=== PATIENT | male | born 1985 | race Caucasian/White ===

== ENCOUNTER 2024-09-08 02:26 | Emergency (ER) | payer MEDICAID ==
[~2024-09-08] VITALS: Ht 160 cm; Wt 72.6 kg
[2024-09-08] MEDS ORDERED: diphenhydrAMINE HCL 50 MG/ML VIAL ONE (03:50)
[2024-09-08] MEDS ORDERED: methylPREDNISolone SOD SUCC 125 MG/2ML VIAL ONE (03:50)
[2024-09-08] MEDS: diphenhydrAMINE HCL 50 MG/ML VIAL IV ONE (03:58)
[2024-09-08] MEDS: methylPREDNISolone SOD SUCC 125 MG/2ML VIAL IV ONE (03:59)
[2024-09-08 04:02] LABS: BASOPHILS % (AUTO) 0.2 % (0.0-2.0); EOSINOPHILS % (AUTO) 0.3 % (0.0-6.0); HEMATOCRIT 40 % (39-51); HEMOGLOBIN 14.3 g/dL (13.5-17.5); LYMPHOCYTES % (AUTO) 35.4 % (20.0-44.0); MEAN CORPUSCULAR HEMOGLOBIN 40 PG (26.0-33.0); MEAN CORPUSCULAR HGB CONC 36 g/dl (31.0-36.0); MEAN CORPUSCULAR VOLUME 110 fL (80-96); MONOCYTES # (AUTO) 0.3 K/uL (0.1-1.30); MONOCYTES % (AUTO) 5.8 % (2.0-12.0); NEUTROPHILS # (AUTO) 3.2 K/uL (1.8-8.9); NEUTROPHILS % (AUTO) 58.3 % (43.0-81.0); PLATELET COUNT (AUTO) 114 K/uL (150-450); RED BLOOD CELL COUNT(AUTO) 3.61 MIL/uL (4.5-6.0); RED CELL DISTRIBUTION WIDTH 13.6 % (11.5-15.0); WHITE BLOOD COUNT (AUTO) 5.5 K/uL (4.3-11.0)
[2024-09-08 04:17] LABS: ALBUMIN 4.1 g/dL (3.4-5.0); BILIRUBIN,TOTAL 0.9 mg/dL (0.2-1.0); CREATININE 0.9 mg/dL (0.6-1.3); TOTAL PROTEIN, SERUM 7.6 g/dL (6.4-8.2)
[2024-09-08] MEDS ORDERED: PRED50TA PO (05:16)
[2024-09-08] MEDS ORDERED: DIPH50CA4 PO (05:16)
[2024-09-08 05:54] VITALS: BP 124/78; TEMP 98.1; O2SAT 98
== END 2024-09-08 05:54 | disposition home or self-care (01) ==
LOC: ER 02:44
DX: Z79.52 Long term (current) use of systemic steroids (principal); L50.9 Urticaria, unspecified
CPT/HCPCS: 99284; 96374; 96375; 85025; 36415; 80053; J1200; J2919